=== PATIENT | female | born 1935 | race Caucasian/White ===

== ENCOUNTER 2020-11-30 20:39 | Observation (INO) | payer MEDICARE, BC ==
[~2020-11-30] VITALS: Ht 167.6 cm; Wt 55.6 kg
[2020-11-30 22:15] VITALS: BP 102/39; PULSE 73; TEMP 97.7
[2020-11-30] MEDS ORDERED: BINOSTO PO (22:17)
[2020-11-30] MEDS ORDERED: TIROSINT100 MC1 PO (22:18)
[2020-11-30] MEDS ORDERED: ATIVAN 0.50.5 MG/TAB PO (22:19)
[2020-11-30] MEDS ORDERED: COZAAR100 MG PO (22:19)
[2020-11-30] MEDS ORDERED: ZOCOR 40MG40 MG PO (22:20)
[2020-11-30] MEDS ORDERED: LOPRESSOR 550 MG/TAB PO (22:21)
[2020-11-30] MEDS ORDERED: CALCIUM WITH D31 CTB PO (22:22)
[2020-11-30] MEDS ORDERED: VITAMIND3 5000 PO (22:24)
[2020-11-30] MEDS ORDERED: KLOR-CON M2020 MEQ PO (22:25)
[2020-11-30] MEDS ORDERED: ALIGN (22:25)
[2020-11-30] MEDS ORDERED: COLESTID 1GM1 G PO (22:26)
[2020-11-30] MEDS ORDERED: PROZAC 20MG20 MG PO (22:26)
[2020-11-30] MEDS ORDERED: DIGITEK0.125 MG PO (22:28)
[2020-11-30] MEDS ORDERED: PLAVIX 75MG TAB75 MG PO (22:28)
--- NOTE | 2020-11-30 23:00 | NUR ---
PT ARRIVES TO ROOM WITH EMS. REPORT HAD PREVIOUSLY BEEN TAKEN FROM TRANSFERRING FACILITY. PT IS A&O X3, PLEASANT ET COOPERATIVE. PT AMBULATES TO BED FROM EMS STRETCHER. GAIT IS STEADY. PT DENIES ANY PAIN OR NAUSEA @ THIS TIME. BOWEL SOUNDS ARE ACTIVE. PT ORIENTED TO UNIT ROUTINE ET CALL LIGHT. MEDICATIONS VERIFIED WITH PT. VERBALIZES UNDERSTANDING. PT DENIES OTHER NEEDS. DR FARR CALLED ET NOTIFIED OF PT ARRIVAL. ORDERS RECEIVED.
[2020-11-30] MEDS ORDERED: LANOXIN 0.120.125 MG PO (23:06)
[2020-12-01 03:18] VITALS: BP 107/57; PULSE 78; TEMP 98.5
[2020-12-01 07:00] LABS: HEMOGLOBIN 10.2 g/dl (12.5-16.0); MEAN CELL VOLUME 95 fl (80.0-100.0); MEAN CORPUSCULAR HEMOGLOBIN 31 pg (27.0-31.0); MEAN CORPUSCULAR HGB CONC 32 g/dl (33.0-37.0); MEAN PLATELET VOLUME 9.2 fl (7.4-10.4); PLATELET COUNT 186 K/mm3 (130-400); RED BLOOD COUNT 3.34 M/mm3 (4.10-5.30); REDCELL DISTRIBUTION WIDTH-CV 13.1 % (11.5-14.5)
[2020-12-01 07:02] LABS: HEMATOCRIT 31.7 % (37.0-47.0)
[2020-12-01 07:09] LABS: ALBUMIN 2.9 gm/dL (3.5-5.0); BILIRUBIN,TOTAL 0.3 mg/dL (0.0-1.0); CALCIUM 7.6 mg/dL (8.4-10.2); CREATININE, serum 0.94 (0.52-1.25); POTASSIUM 3.7 mmol/L (3.4-5.0); TOTAL PROTEIN 5.6 gm/dL (6.4-8.2)
[2020-12-01 07:29] VITALS: BP 108/54; PULSE 82; TEMP 98.3
[2020-12-01 07:47] LABS: BAND 15 % (0-10); EOSINOPHIL 5 % (0-4); LYMPHOCYTE 38 % (20.0-51.0); METAMYELOCYTE 1 % (0-0); NEUTROPHILS 36 % (42.0-75.2); PLATELET ESTIMATE NORMAL (NORMAL)
--- NOTE | 2020-12-01 09:45 | NUR ---
Patient alert and oriented, answers questions appropriately. See assessment. Abdomen soft, non tender, non distended. Bowel sounds active x4 quads. +Flatus. +Bowel movement. CLD, asking to increase diet. No c/o at this time.
[2020-12-01 11:28] VITALS: BP 113/45; PULSE 77; TEMP 98.7
--- NOTE | 2020-12-01 11:30 | NUR ---
SW met with patient in her room and her son, Williams Mcgee, was present as well. Patient is a and resides alone in a home without stairs in [place], [place]. Patient has 2 sons and 1 daughter but the closest child lives in [place]. Her daughter will be staying with her for several days to make sure she returns to full independence. Patient states she has a large support system in the immediate area made up of friends and neighbors. Patient is mostly indep but has a walker and a cane as needed. PCP is Dr. José in [place]. Patient obtains her meds from [facility] in [place]. *Patient will likely d/c home with no needs when medically cleared
[2020-12-01 11:50] VITALS: BP 114/74; PULSE 74; TEMP 98.1
--- NOTE | 2020-12-01 12:55 | NUR ---
First visit from the train examiner. No needs right now.
--- NOTE | 2020-12-01 16:21 | NUR ---
Discharge instructions reviewed with patient and son, verbalized understanding. Discharged via wheelchair to auto/home with son at 1615.
== END 2020-12-01 16:20 | disposition home or self-care (01) ==
LOC: MEDICAL 20:39 → SURG 22:00 → MEDICAL 22:00 → SURG 22:00
PROVIDERS: ADMIT Surgery
DX: K56.600 Partial intestinal obstruction, unspecified as to cause (principal); I48.91 Unspecified atrial fibrillation; K50.90 Crohn's disease, unspecified, without complications; K52.9 Noninfective gastroenteritis and colitis, unspecified; K59.81 Ogilvie syndrome; E78.00 Pure hypercholesterolemia, unspecified; I10 Essential (primary) hypertension; E03.9 Hypothyroidism, unspecified; N39.0 Urinary tract infection, site not specified; F41.9 Anxiety disorder, unspecified; Z87.820 Personal history of traumatic brain injury; Z79.01 Long term (current) use of anticoagulants; Z95.0 Presence of cardiac pacemaker; Z90.49 Acquired absence of other specified parts of digestive tract; Z79.890 Hormone replacement therapy; Z79.899 Other long term (current) drug therapy; Z87.891 Personal history of nicotine dependence; Z98.0 Intestinal bypass and anastomosis status
CPT/HCPCS: G0378; G0379; J7042

== ENCOUNTER 2021-04-21 13:33 | Inpatient (IN) | payer MEDICARE, BC ==
[~2021-04-21] VITALS: Ht 167.6 cm; Wt 54.6 kg
[~2021-04-21 13:33] MED LIST: ALIGN; ATIVAN 0.50.5 MG/TAB PO; BINOSTO PO; CALCIUM WITH D31 CTB PO; COLESTID 1GM1 G PO; COZAAR100 MG PO; DIGITEK0.125 MG PO; KLOR-CON M2020 MEQ PO; LANOXIN 0.120.125 MG PO; LOPRESSOR 550 MG/TAB PO; PLAVIX 75MG TAB75 MG PO; PROZAC 20MG20 MG PO; TIROSINT100 MC1 PO; VITAMIND3 5000 PO; ZOCOR 40MG40 MG PO
[2021-05-10] MEDS ORDERED: ASPIRIN E.C. 8181 MG PO (08:46)
[2021-05-10] MEDS ORDERED: CENTRUM SILVER1 CTB PO (08:47)
[2021-05-10] MEDS ORDERED: PEPCID 20MG TAB20 MG PO (08:47)
[2021-05-10] MEDS ORDERED: LUTEIN20 M1 PO (08:48)
[2021-05-10] MEDS ORDERED: ZOFRAN ODT4 MG PO (08:49)
[2021-05-10] MEDS ORDERED: TYLENOL 500MG500 MG PO (08:51)
[2021-05-10 09:00] LABS: BASO # 0.1 K/mm3 (0.0-0.2); BASO % 0.9 % (0.0-2.0); EOS # 0.2 K/mm3 (0.0-0.7); EOS % 3.3 % (0.0-4.0); GRAN # 3.5 K/mm3 (1.4-6.5); GRAN % 61.8 % (42.2-75.2); HEMATOCRIT 33.2 % (37.0-47.0); HEMOGLOBIN 10.8 g/dl (12.5-16.0); LYMPH # 1.4 K/mm3 (1.2-3.4); LYMPH % 24.7 % (20.0-51.0); MEAN CELL VOLUME 94 fl (80.0-100.0); MEAN CORPUSCULAR HEMOGLOBIN 30 pg (27-31); MEAN CORPUSCULAR HGB CONC 33 g/dl (33.0-37.0); MEAN PLATELET VOLUME 8.9 fl (7.4-10.4); MONO # 0.5 K/mm3 (0.1-0.6); MONO % 8.9 % (1.7-9.3); PLATELET COUNT 181 K/mm3 (130-400); RED BLOOD COUNT 3.55 M/mm3 (4.10-5.30); REDCELL DISTRIBUTION WIDTH-CV 13.2 % (11.5-14.5)
[2021-05-10 09:08] VITALS: BP 129/56; PULSE 70; TEMP 98.2
[2021-05-10 09:20] LABS: CALCIUM 8.6 mg/dL (8.4-10.2); CREATININE, serum 0.93 mg/dL (0.57-1.11); POTASSIUM 4.1 mmol/L (3.5-4.5)
--- NOTE | 2021-05-10 19:27 | NUR ---
C/O nausea after taking in clear liquids. Zofran given per dr order.
[2021-05-10 19:30] VITALS: BP 96/50; PULSE 91; TEMP 98
[2021-05-10 20:15] VITALS: BP 125/69; PULSE 88
--- NOTE | 2021-05-10 20:20 | NUR ---
This nurse to room to remove LAMONT as post op vitals were complete. Noted to have several soft BPs at 1800 and 1900. Cuff on patient is an adult and very large on patient. Switched cuff to Adult small with blood pressure 120s/60s. Patient denies lightheadedness/dizziness. Zofran given earlier in shift helped nausea. Denies questions/concerns. Call light in reach. Will monitor.
--- NOTE | 2021-05-10 22:28 | NUR ---
RECEIVED REPORT FROM DAY SHIFT. PATIENT HERE FOR ROBOTIC DIAGNOSTIC LAP. PATIENT PRESENTS WITH 5 LAP SITES. FOUR GLUED, ONE BIKINI TRANSVERSE SITE COVERED WITH GAUZE. ALL APPROXIMATED AND DRY. PATIENT IS ALERT AND ORIENTED. PATIENT DENIES ANY PAIN AT THIS TIME. PATIENT HAD MILD NAUSEA WITH CLEAR FLUIDS. MEDICATIONS GIVEN. PATIENT APPEARS PALE AND REPORTS THAT HER NAUSEA IS SUBSIDING. PATIENT IS RESTING IN BED WITH CALL LIGHT NEAR.
[2021-05-10 23:25] VITALS: BP 92/44; PULSE 88; TEMP 97.6
--- NOTE | 2021-05-10 23:51 | NUR ---
PATIENT'S BLOOD PRESSURES HAVE BEEN SOFT, READING AT 81/43 AND 92/44. CALLED KISHORE FOR GUIDANCE. KISHORE ORDERED STAT H&H AND BOLUS NS OF 250CC. PATIENT HAS HAD OUTPUT OF 125CC TOTAL POST OP. WILL CONTINUE TO MONITOR.
[2021-05-11] VITALS (12 sets, daily range): BP systolic 83–118; BP diastolic 36–54; PULSE 71–94; TEMP 97.1–98.7
[2021-05-11 00:07] LABS: HEMATOCRIT 24.2 % (37.0-47.0)
--- NOTE | 2021-05-11 00:13 | NUR ---
PATIENT HAD H&H DONE. HGB DECREASED TO 8.0 AND HCT TO 24.2. CALLED KISHORE TO REPORT NEW LABS. KISHORE ORDERED NEW H&H AT 0600 WITH PT/INR. WILL CONTINUE TO MONITOR.
--- NOTE | 2021-05-11 02:59 | NUR ---
PATIENT CONTINUES TO PRESENT SOFT PRESSURES OF 79/36 AND 85/36 AND LOW OUTPUT OF 5ML OVER PREVIOUS THREE HOURS. CALLED KISHORE TO PROVIDE GUIDANCE. KISHORE ORDERED NS BOLUS OFF 500CC @175/HOUR. WILL CONTINUE TO MONITOR.
--- NOTE | 2021-05-11 05:42 | NUR ---
Patient continues to have soft blood pressures-currently 90s/40s. Output has not beed adequate-total of 80mls for this shift. Did discuss with Dr. Meraz and patient received a total of 750mls in slow bolus per dr order. Patient is asymptomatic currently but has not been up out of bed. Lap sites/low transverse-edges well approximated-no drainage noted. Could not tolerate clear liquids at dinner due to nausea. Received zofran x1. Denied need for pain meds-scheduled tylenol was adequate. Denies current questions/concerns. Call light in reach. Will monitor.
[2021-05-11 06:56] LABS: BASO % 0.2 % (0.0-2.0); GRAN # 9.6 K/mm3 (1.4-6.5); GRAN % 79.3 % (42.2-75.2); LYMPH # 1.7 K/mm3 (1.2-3.4); LYMPH % 13.8 % (20.0-51.0); MEAN CELL VOLUME 98 fl (80.0-100.0); MEAN CORPUSCULAR HGB CONC 31 g/dl (33.0-37.0); MEAN PLATELET VOLUME 9.5 fl (7.4-10.4); MONO # 0.8 K/mm3 (0.1-0.6); MONO % 6.4 % (1.7-9.3); PLATELET COUNT 197 K/mm3 (130-400); RED BLOOD COUNT 2.39 M/mm3 (4.10-5.30); REDCELL DISTRIBUTION WIDTH-CV 13.4 % (11.5-14.5)
[2021-05-11 07:04] LABS: HEMATOCRIT 23.3 % (37.0-47.0); HEMOGLOBIN 7.3 g/dl (12.5-16.0); MEAN CORPUSCULAR HEMOGLOBIN 31 pg (27-31)
[2021-05-11 07:05] LABS: CALCIUM 7.8 mg/dL (8.4-10.2); CREATININE, serum 1.87 mg/dL (0.57-1.11); MAGNESIUM 1.9 mg/dL (1.6-2.6); PHOSPHOROUS 6.3 mg/dL (2.3-4.7); POTASSIUM 4.4 mmol/L (3.5-4.5)
[2021-05-11 07:28] LABS: INR 1.4 (0.8-3.0); PROTHROMBIN TIME 15.6 SECONDS (9.7-12.8)
--- NOTE | 2021-05-11 13:47 | NUR ---
First visit from the striker off. No needs right now.
--- NOTE | 2021-05-11 14:31 | NUR ---
Social Work student and RAMONA Junior met with patient to discuss discharge planning. Patient usually resides in [place], [place], but is temporarily living in an apartment by her daughter, Idalmis, in [place], [place]. Idalmis is listed as the patient's emergency contact(ph#[phone]). [facility] Patient sees for primary care. Patient states that she usually receives medications from [facility] in [place], [place], but her daughter, Idalmis, stated that she will most likely be receiving medications after discharge from the hospital in [place], [place] from [facility]. Patient does not utilize any durable medical equiptment, does not use any oxygen at home, and is independent with her ADL's. Patient stated she does have a DPOA-HC. Patient's daughter, Idalmis, stated that she has a copy of it on her email and will send it via email to RAMONA Junior for the hospital to have a copy. The DPOA-HC presents that all three kids are listed as the agents that have to act in unanimous consent. The kids and their numbers are as followed: Nicho(ph#[phone]), Idalmis(ph#[phone]), and Richard(ph#[phone]). Discharge plan: Home pending PT/OT recs
[2021-05-11 16:08] LABS: HEMATOCRIT 28.1 % (37.0-47.0); HEMOGLOBIN 9.1 g/dl (12.5-16.0)
[2021-05-11 16:23] LABS: ALBUMIN 2.8 gm/dL (3.4-4.8); CALCIUM 7.8 mg/dL (8.4-10.2); CREATININE, serum 2.42 mg/dL (0.57-1.11); PHOSPHOROUS 6.2 mg/dL (2.3-4.7); POTASSIUM 4.9 mmol/L (3.5-4.5)
--- NOTE | 2021-05-11 17:26 | NUR ---
BP 93/41, Pulse 77. Bolus ordered and currently being administered. Daughter at the bedside. Call light in reach. Fall percautions in place.
--- NOTE | 2021-05-11 18:29 | NUR ---
Upon recheck of vitals, BP 101/47 with a pulse of 74. Patient states that she is "Feeling better," but still experiencing intermittent ABD pain. PRN zofran given once this shift. Patient denies any pain, discomfort, SOA, or further needs at this time. Call light in reach. Fall percautions in place. Bong A&O.
--- NOTE | 2021-05-11 21:55 | NUR ---
PATIENT ALERT AND ORIENTED. HERE FOR ROBOTIC ANASTAMOSIS RE-ATTACHMENT. PATIENT IS HAVING N/V. PATIENT OFFERED ZOFRAN AND DENIED THE NEED. PATIENT INSTRUCTED TO SIP ON LIQUIDS. PATIENT'S PRESSURES CONTINUE TO BE LOW. SOME EVENING MEDS HELD DUE TO LOW BP. PATIENT HAD EMESIS AFTER GIVING EVENING MEDS. PATIENT CONTINUES TO HAVE LOW OUTPUT WITH BISHOP. WILL CONTINUE TO MONITOR. PATIENT IN BED WITH CALL LIGHT NEAR.
[2021-05-12 03:48] VITALS: BP 112/51; PULSE 75; TEMP 98.2
--- NOTE | 2021-05-12 05:32 | NUR ---
Patient has been nauseated with movement this shift. Has been dry heaving but no emesis. Refusing anti nausea medications stating its only when she moves and with rest it subsides. Instructed to call if she would like connor. Verbalizes understanding. Call light in reach. Will monitor.
--- NOTE | 2021-05-12 06:08 | NUR ---
PATIENT FEELING NAUSEATED, REQUESTED ZOFRAN AFTER DENYING TWICE THROUGHOUT SHIFT. WILL CONTINUE TO MONITOR.
[2021-05-12 06:55] LABS: BASO % 0.2 % (0.0-2.0); EOS % 0.2 % (0.0-4.0); GRAN # 8.9 K/mm3 (1.4-6.5); GRAN % 80.8 % (42.2-75.2); LYMPH # 1.5 K/mm3 (1.2-3.4); LYMPH % 13.5 % (20.0-51.0); MEAN CELL VOLUME 94 fl (80.0-100.0); MEAN CORPUSCULAR HGB CONC 32 g/dl (33.0-37.0); MEAN PLATELET VOLUME 9.3 fl (7.4-10.4); MONO # 0.6 K/mm3 (0.1-0.6); PLATELET COUNT 184 K/mm3 (130-400); RED BLOOD COUNT 2.72 M/mm3 (4.10-5.30); REDCELL DISTRIBUTION WIDTH-CV 14.6 % (11.5-14.5)
[2021-05-12 07:14] LABS: ALBUMIN 2.6 gm/dL (3.4-4.8); ALKALINE PHOSPHATASE 71 U/L (40-150); ANION GAP 9 mmol/L (7-16); AST,SGOT 21 U/L (5-34); BILIRUBIN,TOTAL 0.5 mg/dL (0.2-1.2); BLOOD UREA NITROGEN 27 mg/dL (10-20); CALCIUM 7.6 mg/dL (8.4-10.2); CARBON DIOXIDE 22 mmol/L (23-31); CHLORIDE 104 mmol/L (98-107); CREATININE, serum 2.62 mg/dL (0.57-1.11); GLUCOSE 117 mg/dL (70-99); POTASSIUM 4.4 mmol/L (3.5-4.5); SODIUM 135 mmol/L (136-145)
[2021-05-12 07:18] LABS: ALANINE AMINOTRANSFERASE < 6 U/L (0-55)
[2021-05-12 07:27] LABS: HEMATOCRIT 25.6 % (37.0-47.0); HEMOGLOBIN 8.3 g/dl (12.5-16.0); MEAN CORPUSCULAR HEMOGLOBIN 31 pg (27-31)
[2021-05-12 07:38] VITALS: BP 99/37; PULSE 85; TEMP 98.2
--- NOTE | 2021-05-12 08:14 | NUR ---
called and we reviewed patient Bp as well as labs. Hospitalist consult obtained & spoke to kris Briones about patient
--- NOTE | 2021-05-12 08:36 | NUR ---
Patient assisted up to chiar at bedside. Redness noted to coccyx; skin is intact. Daughter at bedside
[2021-05-12 11:42] VITALS: BP 139/71; PULSE 95; TEMP 98.1
--- NOTE | 2021-05-12 11:48 | NUR ---
Patient resting in bed. Repositioned to her right side at her request. Daughter at bedside. She denies further needs at this time
--- NOTE | 2021-05-12 14:08 | NUR ---
Patient requesting anti-nausea medication. Daughter at bedside. Patient had approx 4ml of emesis. Daughter is concerned about hematemesis. Patient had red jello as a snack
[2021-05-12 16:00] VITALS: BP 140/54; PULSE 100; TEMP 98.5
--- NOTE | 2021-05-12 16:44 | NUR ---
oil field worker met with the patient's daughter who would like a SNF referral sent to [facility] in [place]. Patient's daughter is a RN there. Phone number :[phone] provided. [facility] coordinator is Keyla Mcknight at ext. [phone]. Message left for Keyla. [facility] contacted and fax number for nursing [phone] provided. Patient's daughter expresses concern over if the patient can make a [address] ride.
--- NOTE | 2021-05-12 17:16 | NUR ---
Patient vomited again. Called Dr. Felix to update him on patient status. Per Dr. Felix he will increase IV fluids and patient is to be NPO for now.
[2021-05-12 19:31] VITALS: BP 129/61; PULSE 106; TEMP 99.1
--- NOTE | 2021-05-12 21:32 | NUR ---
REPORT RECEIVED FROM DAY SHIFT. ASSUMED CARE. PATIENT A&OX3. PATIENT DENIES ANY PAIN AT THIS TIME. ASSESSMENT COMPLETE. BISHOP TO ALYX. SMALL REDDENED AREA ON RIGHT CHEEK OF BUTTOCKS. PM MEDS GIVEN. COZAAR HELD DUE TO MULTIPLE HTN MEDS AND PATIENT HAS BEEN HAVING SOFT PRESSURES. WILL CONTINUE TO MONITOR. PATIENT RESTING IN BED WITH CALL LIGHT NEAR.
[2021-05-12 23:22] VITALS: BP 150/73; PULSE 119; TEMP 99.1
--- NOTE | 2021-05-12 23:57 | NUR ---
ATTEMPTED TO GIVE PATIENT SCHEDULED TYLENOL. PATIENT BEGAN TO VOMIT APPROXIMATELY 240CC OF EMESIS. PATIENT REQUESTED ZOFRAN. WILL CONTINUE TO MONITOR.
[2021-05-13 03:15] VITALS: BP 125/58; PULSE 116; TEMP 98.6
--- NOTE | 2021-05-13 06:33 | NUR ---
PATIENT HAS HAD TWO EPISODES OF VOMITING THROUGHOUT SHIFT. GAVE PATIENT ZOFRAN X2. MORNING MEDS GIVEN. PATIENT PREFERS TO HAVE HER SYNTHROID WITH ATIVAN IN THE MORNINGS. PATIENT DENIES ANY PAIN AT THIS TIME.
[2021-05-13 06:49] LABS: MEAN CELL VOLUME 95 fl (80.0-100.0); MEAN CORPUSCULAR HGB CONC 32 g/dl (33.0-37.0); MEAN PLATELET VOLUME 9.4 fl (7.4-10.4); PLATELET COUNT 233 K/mm3 (130-400); REDCELL DISTRIBUTION WIDTH-CV 14.2 % (11.5-14.5)
[2021-05-13 07:12] LABS: ALBUMIN 2.4 gm/dL (3.4-4.8); ALKALINE PHOSPHATASE 81 U/L (40-150); ANION GAP 9 mmol/L (7-16); AST,SGOT 19 U/L (5-34); BILIRUBIN,TOTAL 0.5 mg/dL (0.2-1.2); BLOOD UREA NITROGEN 25 mg/dL (10-20); CARBON DIOXIDE 21 mmol/L (23-31); CHLORIDE 107 mmol/L (98-107); CREATININE, serum 1.56 mg/dL (0.57-1.11); GLUCOSE 102 mg/dL (70-99); POTASSIUM 4.2 mmol/L (3.5-4.5); SODIUM 137 mmol/L (136-145); TOTAL PROTEIN 5.2 gm/dL (6.2-8.1)
[2021-05-13 07:14] LABS: ALANINE AMINOTRANSFERASE < 6 U/L (0-55)
[2021-05-13 07:23] LABS: HEMATOCRIT 27.4 % (37.0-47.0); HEMOGLOBIN 8.8 g/dl (12.5-16.0); MEAN CORPUSCULAR HEMOGLOBIN 30 pg (27-31)
[2021-05-13 08:00] VITALS: BP 143/58; PULSE 120; TEMP 97.9
[2021-05-13 08:51] LABS: BAND 7 % (0-10); LYMPHOCYTE 12 % (20.0-51.0); NEUTROPHILS 81 % (42.0-75.2)
--- NOTE | 2021-05-13 08:51 | NUR ---
Patient assisted out of bed. Up to the bathroom, she had a loose liquid Bm. Patient also vom[facility] dark green [facility] Attempted to give patient her Lopressor and Prozac, but did appear to vomit it up. Held all other medications due to being NPO. Patient abdomen is more distended & firm today. She was up to sink to brush her teeth. Sitting up in chair now. Will closely monitor.
[2021-05-13 08:53] LABS: HYPOCHROMIA 1+; PLATELET ESTIMATE NORMAL (NORMAL); SCHISTOCYTES 1+
--- NOTE | 2021-05-13 10:16 | NUR ---
Patient back to bed. Resting now. Will monitor.
[2021-05-13 11:25] VITALS: BP 119/54; PULSE 100; TEMP 97.6
--- NOTE | 2021-05-13 12:40 | NUR ---
round. Plan of care reviewed. Discussed with hospitalist & Trixie Virgen patient elevated heart rate, also made them aware patient was unable to keep metoprolol down this am. Iv Lopressor ordered as well as tele to closely monitor patient. Zofran Prn given to attempt to keep patient nausea at bay, patient not currently wanting Ng tube, she has had one in the past and would like to let her bowels continue to rest. Will try to encourage activity today. Patient currently resting. Will monitor.
--- NOTE | 2021-05-13 14:45 | NUR ---
Patient has another episode for nausea. continues to deny wanting an NG tube. Will monitor.
[2021-05-13 15:40] VITALS: BP 154/67; PULSE 92; TEMP 98.5
--- NOTE | 2021-05-13 16:12 | NUR ---
Patient up to the bathroom, she had a loose BM. Reports maybe passing flatus while she was up. She did again have an episode of emesis. She continues to want to avoid Ng tube. She remains NPO. Allyven foam applied to her coccyx, lying on her right side. We offered tried to place air matress on her bed, she has no interest. Fresh gown,sock, and lotion to skin.
--- NOTE | 2021-05-13 18:17 | NUR ---
Patient sleeping soundly, her daughter at bedside.
[2021-05-13 19:24] VITALS: BP 137/51; BP 137/510; PULSE 99; TEMP 98.3
--- NOTE | 2021-05-13 20:21 | NUR ---
PT HAS BEEN UP TO BATHROOM X1, HAS SPONTANEOUS LOOSE STOOL, DENIES PASSING GAS. BISHOP TO BSD WITH YELLOW URINE. TAKES LANOXIN PO, REFUSES COLACE AND PEPCID FOR FEAR OF VOMITING. IV LOPRESSOR GIVEN WELL. PT ABD DISTENDED, HYPOACTIVE BS NOTED. IVF TO LEFT AC, INFUSING WITHOUT REDNESS OR SWELLING. HAS ROBOTIC SITES X4 WITH SMALL TRANSVERSE INCISION, ALL GLUED AND DRY. IS ALERT AND ORIENTED X4. DENIES PAIN AT THIS TIME.
[2021-05-13 23:48] VITALS: BP 121/90; PULSE 100; TEMP 98.2
[2021-05-14 03:24] VITALS: BP 144/63; PULSE 98; TEMP 98.6
--- NOTE | 2021-05-14 04:02 | NUR ---
PT HAS EMESIS, ZOFRAN GIVEN AT THIS TIME.
--- NOTE | 2021-05-14 04:03 | NUR ---
PT HAS EMESIS, MEDICATED WITH ZOFRAN 4MG IVP AT THIS TIME.
[2021-05-14 07:17] LABS: MEAN CELL VOLUME 94 fl (80.0-100.0); MEAN CORPUSCULAR HGB CONC 32 g/dl (33.0-37.0); MEAN PLATELET VOLUME 9.2 fl (7.4-10.4); PLATELET COUNT 292 K/mm3 (130-400); RED BLOOD COUNT 2.97 M/mm3 (4.10-5.30); REDCELL DISTRIBUTION WIDTH-CV 14.3 % (11.5-14.5)
[2021-05-14 07:20] LABS: MEAN CORPUSCULAR HEMOGLOBIN 30 pg (27-31)
[2021-05-14 07:39] LABS: CALCIUM 8.4 mg/dL (8.4-10.2); CREATININE, serum 1.46 mg/dL (0.57-1.11); POTASSIUM 4.1 mmol/L (3.5-4.5)
[2021-05-14 07:45] VITALS: BP 135/73; PULSE 111; TEMP 98
[2021-05-14 08:50] LABS: BAND 1 % (0-10); EOSINOPHIL 2 % (0-4); LYMPHOCYTE 15 % (20.0-51.0); NEUTROPHILS 78 % (42.0-75.2)
[2021-05-14 08:52] LABS: HYPOCHROMIA 1+; PLATELET ESTIMATE NORMAL (NORMAL); SCHISTOCYTES 2+
--- NOTE | 2021-05-14 09:24 | NUR ---
PT ASSESSED. NO COMPLAINTS OF PAIN OR DYSPNEA. COMPLAINS OF NAUSEA/VOMITING AND IS MEDICATED PER MAR. NO OTHER CONCERNS AT THIS TIME. PT SENT DOWN FOR CT SCAN.
[2021-05-14 11:50] VITALS: BP 132/65; PULSE 107; TEMP 97.7
[2021-05-14 15:54] VITALS: BP 138/90; PULSE 109; TEMP 97.6
[2021-05-14 19:26] VITALS: BP 146/59; PULSE 98; TEMP 98.2
--- NOTE | 2021-05-14 21:00 | NUR ---
PT AWAKE, ALERT AND ORIENTED X4. DENIES NAUSEA AT THIS TIME, HAS HAD ONE LIQUID BM SO FAR THIS SHIFT. HAS IVF TO LEFT AC, INFUSING WITHOUT PROBLEM. HAS BISHOP TO BSD WITH YELLOW URINE. TAKES HS MEDS, EXCLUDING COLACE AT THIS TIME. PT REPORTS TAKING SCHEDULED ES TYLENOL X1 TODAY WITHOUT EMESIS. ABD DISTENDED WITH HYPOACTIVE BS. ROBOTIC SITES GLUED AND DRY.
[2021-05-14 23:30] VITALS: BP 156/62; PULSE 101; TEMP 97.8
--- NOTE | 2021-05-14 23:30 | NUR ---
PT TAKES SCHEDULED ES TYLENOL WITHOUT N/V. TAKING ICE CHIPS SPARINGLY.
[2021-05-15 03:13] VITALS: BP 133/62; PULSE 99; TEMP 98.2
--- NOTE | 2021-05-15 04:00 | NUR ---
PT UP TO BATHROOM, NO EMESIS, HAS SPONTANEOUS LIQUID STOOL, NO FLATUS.
--- NOTE | 2021-05-15 06:08 | NUR ---
PT HASN'T HAD ANY EMESIS THIS SHIFT. MEDICATED WITH SCHEDULED ES TYLENOL, SYNTHROID AND ATIVAN PO AT THIS TIME.
[2021-05-15 06:51] LABS: MEAN CELL VOLUME 96 fl (80.0-100.0); MEAN CORPUSCULAR HGB CONC 32 g/dl (33.0-37.0); MEAN PLATELET VOLUME 9.1 fl (7.4-10.4); PLATELET COUNT 314 K/mm3 (130-400); RED BLOOD COUNT 2.97 M/mm3 (4.10-5.30); REDCELL DISTRIBUTION WIDTH-CV 14.4 % (11.5-14.5)
[2021-05-15 07:03] LABS: CALCIUM 8.4 mg/dL (8.4-10.2); CREATININE, serum 1.31 mg/dL (0.57-1.11)
[2021-05-15 07:07] LABS: HEMATOCRIT 28.5 % (37.0-47.0); HEMOGLOBIN 9.1 g/dl (12.5-16.0); MEAN CORPUSCULAR HEMOGLOBIN 31 pg (27-31)
[2021-05-15 07:27] VITALS: BP 143/61; PULSE 87; TEMP 98.2
--- NOTE | 2021-05-15 10:31 | NUR ---
Pt. up at bedside in chair. Daughter at bedside. Call light within reach. Pt. denies pain. Denies any needs at this time
[2021-05-15 11:22] LABS: MAGNESIUM 2.3 mg/dL (1.6-2.6)
[2021-05-15 11:45] LABS: PATHOLOGY DIFF REVIEW OK
[2021-05-15 12:00] VITALS: BP 142/49; PULSE 92; TEMP 97.6
--- NOTE | 2021-05-15 14:57 | NUR ---
Media Production Manager contacted Keyla at [facility] and faxed referral. Keyla advised that they can likely accept once patient is off TPN. RAMONA collaborated with IGGY Brooks who advised patient is being started on TPN today.
--- NOTE | 2021-05-15 15:00 | NUR ---
Patient was up to the bathroom and had another loose liquid brown stool, assisted with pericares. Patient one assist to ambulate in hallways. Dr.Wolfe saini, plan of care reviewed. Brittany with AIV at bedside inserting picc line. Clear liquids provided. Her supportive daughter has been at bedside.
[2021-05-15 16:00] VITALS: BP 169/67; PULSE 99; TEMP 98.6
--- NOTE | 2021-05-15 16:28 | NUR ---
Patient attempted orange jello for lunch today. Denied having abd pain or nausea after eating. PICC line was inserted this afternoon. Patient had emesis x 1 around 1610. PRN Zofran given.
--- NOTE | 2021-05-15 19:29 | NUR ---
Patient resting in bed. Daughter at bedside. Reports feeling better after zofran. Bedside report to Sherron
[2021-05-15 20:15] VITALS: BP 139/61; PULSE 112; TEMP 98
[2021-05-16] VITALS (7 sets, daily range): BP systolic 126–165; BP diastolic 40–79; PULSE 83–118; TEMP 97.6–98.9
--- NOTE | 2021-05-16 01:08 | NUR ---
Report received from Christel Harrison RN. Patient is resting quietly in bed during shift report, daughter at the bedside. 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 Patient has 3 lap sites that are CD&I. Velazquez in place, urine output is pale yellow and clear. Full body assessment completed and vital signs are WNL. Patient complains of abdominal bloating but no pain. She is tolerating her clear liquid diet well. Patient has no other complaints at this time. Call light within reach.
[2021-05-16 06:38] LABS: MEAN CELL VOLUME 97 fl (80.0-100.0); MEAN CORPUSCULAR HGB CONC 31 g/dl (33.0-37.0); MEAN PLATELET VOLUME 9.3 fl (7.4-10.4); PLATELET COUNT 294 K/mm3 (130-400); RED BLOOD COUNT 2.58 M/mm3 (4.10-5.30); REDCELL DISTRIBUTION WIDTH-CV 14.5 % (11.5-14.5)
[2021-05-16 06:59] LABS: HEMATOCRIT 24.9 % (37.0-47.0); HEMOGLOBIN 7.7 g/dl (12.5-16.0); MEAN CORPUSCULAR HEMOGLOBIN 30 pg (27-31)
[2021-05-16 07:30] LABS: BAND 22 % (0-10); BASOPHIL 1 % (0-2); EOSINOPHIL 15 % (0-4); LYMPHOCYTE 9 % (20.0-51.0); NEUTROPHILS 48 % (42.0-75.2); NUCLEATED RED BLOOD CELL 4 (0-6)
--- NOTE | 2021-05-16 07:30 | NUR ---
Shift assessment complete. Irregular Heart rate with Afib noted. Patient denies pain or nausea at this time. Breath sounds clear in all myers. Bowel sounds active in all quadrants. Velazquez intact with 195mls adithya, clear urine noted in bag. PICC line is intact. Patient remains on telemetry.
[2021-05-16 07:34] LABS: OVALOCYTES 1+
[2021-05-16 07:35] LABS: HYPOCHROMIA 2+
[2021-05-16 07:39] LABS: CALCIUM 8.6 mg/dL (8.4-10.2); CREATININE, serum 1.08 mg/dL (0.57-1.11); MAGNESIUM 2.1 mg/dL (1.6-2.6); PHOSPHOROUS 1.8 mg/dL (2.3-4.7); POTASSIUM 3.8 mmol/L (3.5-4.5)
--- NOTE | 2021-05-16 09:50 | NUR ---
PT DENIES PAIN OR NAUSEA, HOB ELEVATED. TPN ET IVF INFUSING. BISHOP CATHETER DRAINING DEPENDENTLY. PT ET ACCREDITATION MANAGER NURSE REPORT PT PASSING GAS DURING NIGHT. ABDOMEN IS FIRM, BS HYPOACTIVE, INCISION EDGES WELL APPROXIMATED. DAUGHTER IS @ BEDSIDE. PT ET FAMILY DENY NEEDS. CALL LIGHT WITHIN REACH. BED ALARM ON.
--- NOTE | 2021-05-16 10:40 | NUR ---
STUDENT NURSE JOAN REPORTS THAT PT HAD 100 ML GREEN EMESIS SHORTLY AFTER SWALLOWING PILLS. PILLS DID NOT APPEAR TO BE IN EMESIS. PT STATES THAT SHE FEELS NAUSEOUS BUT DENIES PAIN. PT IS GIVEN BED BATH, CATHETER CARE, ET GOWN CHANGE BY STUDENT NURSES.
--- NOTE | 2021-05-16 11:27 | NUR ---
Manager Commission contacted patient's daughter, Idalmis to provide update. Idalmis advised she is still staying here in [place] but may return home to [place] for a couple days. Idalmis advised she plans to transport patient to [place] ([facility] at time of discharge. Idalmis advised patient wishes to go by private vehicle. Idalmis also advised that if patient needs to stay on TPN she is open to other discharge placements if needed. Discharge Plan: Swing Bed
[2021-05-17 00:03] VITALS: BP 148/61; PULSE 90; TEMP 99
--- NOTE | 2021-05-17 04:10 | NUR ---
Report received from SHANNON Etienne. Full body assessment has been completed and vital signs are WNL. Patient is A&Ox3 and pleasant. Patient resting quietly in bed during shift report. Patient no longer has a kwon catheter in place and has been voiding without difficulty. Per report patient also had a small, soft BM 05/16/21. Patient has been tolerating oral fluids well. No complaints of pain at this time. Call light within reach.
[2021-05-17 04:32] VITALS: BP 140/60; PULSE 86; TEMP 98.3
[2021-05-17 06:25] LABS: MEAN CELL VOLUME 95 fl (80.0-100.0); MEAN CORPUSCULAR HGB CONC 32 g/dl (33.0-37.0); MEAN PLATELET VOLUME 9.3 fl (7.4-10.4); PLATELET COUNT 319 K/mm3 (130-400); RED BLOOD COUNT 2.78 M/mm3 (4.10-5.30)
[2021-05-17 06:26] LABS: HEMATOCRIT 26.3 % (37.0-47.0); HEMOGLOBIN 8.4 g/dl (12.5-16.0); MEAN CORPUSCULAR HEMOGLOBIN 30 pg (27-31)
[2021-05-17 06:46] LABS: ALBUMIN 2.1 gm/dL (3.4-4.8); BILIRUBIN,TOTAL 0.7 mg/dL (0.2-1.2); CALCIUM 8.7 mg/dL (8.4-10.2); CREATININE, serum 0.8 mg/dL (0.57-1.11); PHOSPHOROUS 2.5 mg/dL (2.3-4.7); POTASSIUM 4.1 mmol/L (3.5-4.5); TOTAL PROTEIN 5.2 gm/dL (6.2-8.1)
[2021-05-17 07:00] VITALS: BP 154/62; PULSE 95; TEMP 97.8
[2021-05-17 07:16] LABS: BAND 46 % (0-10); BURR CELLS 1+; EOSINOPHIL 5 % (0-4); LYMPHOCYTE 6 % (20.0-51.0); NEUTROPHILS 41 % (42.0-75.2); OVALOCYTES 1+; PLATELET ESTIMATE NORMAL (NORMAL); SCHISTOCYTES 1+
--- NOTE | 2021-05-17 07:30 | NUR ---
Shift assessment complete. Irregular heart rate with Afib noted. Pt remains on telemetry. Bowel sounds hypoactive in all quadrants.
--- NOTE | 2021-05-17 08:30 | NUR ---
During PT, patient was helped to restroom where she had a liquid, slightly green bowel movement. While on the toilet, pt vomited 225 mls of dark green emesis. Primary RN notified.
[2021-05-17 10:50] VITALS: BP 154/63; PULSE 95; TEMP 98.1
--- NOTE | 2021-05-17 14:38 | NUR ---
CT HERE TO TAKE PT OFF FLOOR.
--- NOTE | 2021-05-17 15:12 | NUR ---
Social Work student faxed clinical updates to [facility].
[2021-05-17 15:40] VITALS: BP 159/64; PULSE 86; TEMP 98
[2021-05-17 19:29] VITALS: BP 157/68; PULSE 93; TEMP 98.5
--- NOTE | 2021-05-17 21:00 | NUR ---
PT IN BED. HAS BEEN VOIDING WITHOUT PROBLEM. HAD LOOSE INC STOOL EARLIER. HAS RT PICC WITH TPN INFUSING. MODERATE BRUISING TO LEFT FLANK NOTED WELL RT FOREARM. ABD WITH ROBOTIC SITES X4, GLUED, AND LOW TRANSVERSE INCISION GLUED, HAS PUBIS BRUISING WELL. ABD DISTENDED WITH HYPOACTIVE BS. PT REPORTS PASSING GAS WITH INC STOOL PREVIOUSLY. DENIES NAUSEA AT THIS TIME AND HAS BEEN TAKING ORAL MEDS WITHOUT PROBLEM. DENIES PAIN.
--- NOTE | 2021-05-17 23:00 | NUR ---
SCHEDULED ES TYLENOL GIVEN, NO EMESIS.
[2021-05-18 00:21] VITALS: BP 136/60; PULSE 84; TEMP 99.5
[2021-05-18 03:59] VITALS: BP 157/80; PULSE 88; TEMP 99.1
--- NOTE | 2021-05-18 04:00 | NUR ---
UP TO BATHROOM, HAS LOOSE BROWN STOOL, VOIDS WITHOUT PROBLEM. BACK TO BED.
--- NOTE | 2021-05-18 05:19 | NUR ---
LABS OBTAINED FROM RT PICC AFTER TPN ON HOLD FOR 10 MINUTES. PT DENIES NEEDS AT THIS TIME.
[2021-05-18 06:15] LABS: HEMATOCRIT 25.6 % (37.0-47.0); HEMOGLOBIN 8.1 g/dl (12.5-16.0); MEAN CELL VOLUME 95 fl (80.0-100.0); MEAN CORPUSCULAR HEMOGLOBIN 30 pg (27-31); MEAN CORPUSCULAR HGB CONC 32 g/dl (33.0-37.0); MEAN PLATELET VOLUME 9.3 fl (7.4-10.4); PLATELET COUNT 317 K/mm3 (130-400); RED BLOOD COUNT 2.69 M/mm3 (4.10-5.30); REDCELL DISTRIBUTION WIDTH-CV 14.3 % (11.5-14.5)
[2021-05-18 06:29] LABS: CALCIUM 8.8 mg/dL (8.4-10.2); CREATININE, serum 0.67 mg/dL (0.57-1.11); MAGNESIUM 1.9 mg/dL (1.6-2.6); PHOSPHOROUS 2.2 mg/dL (2.3-4.7); POTASSIUM 3.9 mmol/L (3.5-4.5)
[2021-05-18 06:51] LABS: BAND 3 % (0-10); EOSINOPHIL 8 % (0-4); LYMPHOCYTE 10 % (20.0-51.0); NEUTROPHILS 76 % (42.0-75.2); NUCLEATED RED BLOOD CELL 1 (0-6)
[2021-05-18 06:52] LABS: HYPOCHROMIA 1+; PLATELET ESTIMATE NORMAL (NORMAL)
[2021-05-18 08:00] VITALS: BP 154/77; PULSE 93; TEMP 98.1
--- NOTE | 2021-05-18 10:29 | NUR ---
Computer Systems Software Engineer met with patient to review discharge plan. Patient is agreeable to [place] ([facility] and has no questions or concerns at this time.
[2021-05-18 11:44] VITALS: BP 133/55; PULSE 87; TEMP 97.3
[2021-05-18 15:30] VITALS: BP 149/72; PULSE 93; TEMP 98
--- NOTE | 2021-05-18 18:16 | NUR ---
PT HAS HAD NUMEROUS LOOSE STOOLS TODAY, VOMITTED X2, ONCE IN MORNING ET ONCE THIS AFTERNOON. PT IS GIVEN ZOFRAN IV FOR NAUSEA. PT STATES THAT SHE HAS OCCASIONAL INTERMITTENT ABDOMINAL PAIN. TPN INFUSING THROUGH PICC LINE. PT HAD EATEN CREAM OF WHEAT FOR LUNCH WITH NO PROBLEMS BUT HAD FELT NAUSEOUS AFTER EATING A PUDDING CUP @ DINNER.
[2021-05-18 19:45] VITALS: BP 146/65; PULSE 96; TEMP 98.5
--- NOTE | 2021-05-18 22:24 | NUR ---
ASSISTED TO BATHROOM, VOIDS AND HAS MUCUS EMESIS.
[2021-05-19] VITALS (7 sets, daily range): BP systolic 135–146; BP diastolic 57–75; PULSE 84–105; TEMP 97.8–98.8
--- NOTE | 2021-05-19 02:19 | NUR ---
PT HAS LARGE AMOUNT BROWN EMESIS. UP TO BATHROOM AND VOIDS WITHOUT PROBLEM.
--- NOTE | 2021-05-19 05:39 | NUR ---
PT SITTING IN BATHROOM, NAUSEA PRESENT, ONLY HAVING SALIVA COME UP. MEDICATED WITH ZOFRAN 4MG IVP AT THIS TIME.
[2021-05-19 06:51] LABS: MEAN CELL VOLUME 95 fl (80.0-100.0); MEAN CORPUSCULAR HGB CONC 32 g/dl (33.0-37.0); MEAN PLATELET VOLUME 9.5 fl (7.4-10.4); PLATELET COUNT 376 K/mm3 (130-400); RED BLOOD COUNT 3.04 M/mm3 (4.10-5.30); REDCELL DISTRIBUTION WIDTH-CV 14.5 % (11.5-14.5)
[2021-05-19 06:52] LABS: HEMATOCRIT 28.8 % (37.0-47.0); HEMOGLOBIN 9.1 g/dl (12.5-16.0); MEAN CORPUSCULAR HEMOGLOBIN 30 pg (27-31)
[2021-05-19 07:31] LABS: CALCIUM 9.1 mg/dL (8.4-10.2); CREATININE, serum 0.67 mg/dL (0.57-1.11); MAGNESIUM 2.2 mg/dL (1.6-2.6); PHOSPHOROUS 3.1 mg/dL (2.3-4.7); POTASSIUM 4.4 mmol/L (3.5-4.5)
[2021-05-19 09:36] LABS: ALBUMIN 2.2 gm/dL (3.4-4.8); BILIRUBIN,TOTAL 0.6 mg/dL (0.2-1.2); C-REACTIVE PROTEIN 10.94 mg/dL (0.00-0.50); TOTAL PROTEIN 5.9 gm/dL (6.2-8.1)
--- NOTE | 2021-05-19 10:20 | NUR ---
Orders recieved from Dr. Felix for Ng tube placement. Patient was willing to have tube placed, but was hesitent. I did have difficutly with insertion, Sonali injection molding supervisor called in for assist. Prior to Ng tube placement. Patient up to the bathroom & had a loose water tyson stool. Pericares given. New allyven foam to coccyx, stage 2 pressure ulcer noted. Air matress applied to bed. Will encourage activity and turning Q 2 hrs. Patient provided with new linens, bed bath. She brushed her teeth. Her abdomen remains distented. Bowels active. Picc Rue Tpn orders.
--- NOTE | 2021-05-19 12:45 | NUR ---
rounded. Plan of care reviewed. We discussed how Ng tube placement went. He assessed tube. I also made him aware of patients ecchymosis to patients left flank/hip. He was able to see. Patient aware she will be NPo, but did provided mouth swab, but unable to given her water per her request.
--- NOTE | 2021-05-19 16:45 | NUR ---
Patient up to the bathroom loose stool & voiding, did have some incontinence. Patient noticed to have Ng tube leaking. Adjustment made to Ng tube & canister. 200 mls of light tanish output noted. Patient provided with fresh linens. She had a bout of nausea when she was up, denies wanting any zofran. Vss on tele. Rue picc line with Tpn & ivf per orders.
--- NOTE | 2021-05-19 17:54 | NUR ---
Patient resting in bed. Ng tube noted to be leaking again, new tubing applied. Patient provided with new gown and assisted with hygiene. Ng tube ouput noted to be odourus. Otherwise patient denies needs at this time and thankful for cares given.
--- NOTE | 2021-05-19 19:09 | NUR ---
Patient daughter has arrived. Patient resting in bed. Bedside Report to Shailesh
--- NOTE | 2021-05-20 01:35 | NUR ---
Received report from day shift. Patient resting in bed. Assessment performed. Patient tolerating NG tube placement well. Patient given PM meds. Patient denies any n/v. Patient continues to have loose stools. Held Colace. Will continue to monitor.
[2021-05-20 03:43] VITALS: BP 135/53; PULSE 95; TEMP 98.4
--- NOTE | 2021-05-20 05:05 | NUR ---
Patient has had 3 large loose bowel movements. Replaced coccyx dressing twice. Patient's stage 2 ulcer on coccyx is covered. Patient repositioned in bed.
[2021-05-20 06:04] LABS: CALCIUM 7.9 mg/dL (8.4-10.2); CREATININE, serum 0.61 mg/dL (0.57-1.11)
[2021-05-20 06:19] LABS: MEAN CELL VOLUME 95 fl (80.0-100.0); MEAN CORPUSCULAR HGB CONC 32 g/dl (33.0-37.0); MEAN PLATELET VOLUME 9.2 fl (7.4-10.4); PLATELET COUNT 365 K/mm3 (130-400); RED BLOOD COUNT 2.64 M/mm3 (4.10-5.30); REDCELL DISTRIBUTION WIDTH-CV 14.5 % (11.5-14.5)
--- NOTE | 2021-05-20 06:19 | NUR ---
Notified of critical lab. Patient's Hgb decreased to 6.8 from 9.1. Lab advised to perform a re-draw. Attempted to call Sandi, phone is busy. Will continue to call.
[2021-05-20 06:22] LABS: HEMATOCRIT 25.1 % (37.0-47.0); MEAN CORPUSCULAR HEMOGLOBIN 30 pg (27-31)
--- NOTE | 2021-05-20 06:57 | NUR ---
Telephoned the hospitalist, Dr. Marmolejo. Francie instructed to order a unit of blood.
[2021-05-20 08:29] LABS: BAND 2 % (0-10); EOSINOPHIL 1 % (0-4); HYPOCHROMIA 1+; LYMPHOCYTE 8 % (20.0-51.0); NEUTROPHILS 86 % (42.0-75.2); PLATELET ESTIMATE NORMAL (NORMAL)
[2021-05-20 08:30] LABS: OVALOCYTES 1+
[2021-05-20 08:44] VITALS: BP 138/55; PULSE 76; TEMP 98.5
--- NOTE | 2021-05-20 09:04 | NUR ---
PT ASSESSED. NO COMPLAINTS OF PAIN OR NAUSEA. NO SIGNS OR SYMPTOMS OF DISTRESS. CALL LIGHT WITHIN REACH
--- NOTE | 2021-05-20 11:22 | NUR ---
Initial visit; Patient thanked Assistant Business Manager for looking in on her. She states she isn't sure how she is doing but welcomed Assistant Business Manager offering God's blessings and to keep her in Assistant Business Manager's prayers.
[2021-05-20 11:25] VITALS: BP 131/43; PULSE 87; TEMP 98
[2021-05-20 16:20] VITALS: BP 135/65; PULSE 77; TEMP 98.3
--- NOTE | 2021-05-20 18:30 | NUR ---
CALLED TO MICHAEL WITH REPORT THAT PT'S NG TUBE WAS OUT. PT WAS BEING ASSISTED TO THE COMMODE WHEN THE TUBE CAME OUT. TIP INTACT. DR. NOVAK NOTIFIED AND REQUESTS WE NOT PLACE A NEW ONE AT THIS TIME. CALL LIGHT WITHIN REACH. PT AND DAUGHTER UPDATED WITH POC
--- NOTE | 2021-05-20 19:40 | NUR ---
NOTIFIED MAEGAN FANG OF LOW UO LAST SHIFT. SEE NEW ORDERS.
--- NOTE | 2021-05-20 20:00 | NUR ---
PT RESTING IN BED. A&OX4. TELEMENTRY CONTINUES. TPN AT 42CC/HR/ LIPIDS AT 21CC/HR/ LR AT 60CC/HR TO RT PICC LINE. PT HAS SMALL AMT LOW ABD PAIN WITH MOVEMENT. REPOSIRTIONED.
[2021-05-20 20:32] VITALS: BP 136/56; PULSE 88; TEMP 98.7
[2021-05-20 23:05] VITALS: BP 136/65; PULSE 94; TEMP 99.3
[2021-05-21] VITALS (12 sets, daily range): BP systolic 91–162; BP diastolic 31–67; PULSE 73–113; TEMP 97.5–98.5
--- NOTE | 2021-05-21 01:13 | NUR ---
SENT 12HR SEDRICK TO LAB. ALBER BISHOP.
[2021-05-21 06:26] LABS: MEAN CELL VOLUME 96 fl (80.0-100.0); MEAN CORPUSCULAR HGB CONC 32 g/dl (33.0-37.0); MEAN PLATELET VOLUME 9.5 fl (7.4-10.4); PLATELET COUNT 320 K/mm3 (130-400); RED BLOOD COUNT 2.42 M/mm3 (4.10-5.30); REDCELL DISTRIBUTION WIDTH-CV 14.4 % (11.5-14.5)
[2021-05-21 06:31] LABS: HEMATOCRIT 23.2 % (37.0-47.0); HEMOGLOBIN 7.3 g/dl (12.5-16.0); MEAN CORPUSCULAR HEMOGLOBIN 30 pg (27-31)
[2021-05-21 06:40] LABS: CALCIUM 7.5 mg/dL (8.4-10.2); CREATININE, serum 0.59 mg/dL (0.57-1.11); POTASSIUM 3.8 mmol/L (3.5-4.5)
[2021-05-21 07:38] LABS: BAND 4 % (0-10); EOSINOPHIL 6 % (0-4); HYPOCHROMIA 2+; LYMPHOCYTE 7 % (20.0-51.0); MYELOCYTE 4 % (0-0); NEUTROPHILS 77 % (42.0-75.2); PLATELET ESTIMATE NORMAL (NORMAL); POIKILOCYTOSIS 2+
[2021-05-21 07:39] LABS: ANISOCYTOSIS 1+; MICROCYTOSIS 1+; OVALOCYTES 2+; POLYCHROMASIA 1+; SCHISTOCYTES 1+
--- NOTE | 2021-05-21 08:35 | NUR ---
Patient up to the bathroom this am. Another loose stool & voided. Pericares given. Barrier cream & cleanser used. Sore coccyx. Allyen foam dressing on. Patient sitting in the chair now. She remains NPO. Denies nausea this am. Abdomen remains slightly distended, but imporved. Robotic site edges well approximated. Brusing continues to low pelvis & into left hip & flank. Picc to RUE Tpn & LR per orders. Will monitor closely.
--- NOTE | 2021-05-21 10:59 | NUR ---
Patient daughter heading home & taking patients purse with her
--- NOTE | 2021-05-21 12:38 | NUR ---
Patient noted to have severe pain, she reports constant not like she has had before. Rating pain 9/10. Cramping in nature. Dr. Meraz called & made aware. Morphine given Prn. Only 1 mg per patient request, she was hesitent to take pain medication. Morphine has seemed to relieve her pain. Able to rest now. has been in to see and acess patient again, will monitor closely. Patient blood ready. Blood protocol followed. Verified with Sarai ORTEGA. Infusing at 60 ml/hr to Picc in [facility] in [place]. Reviewed with patient signs & symptoms of transfusion reaction. She report having mant transfusions in the past and toelrating without problems. Will remain at bedside & closely monitor patient.
--- NOTE | 2021-05-21 12:48 | NUR ---
rounded. He is aware of pain patient has had. Plan of care reviewed. No new orders at this time. He is aware of blood pressure. SHe continue to tolerate transfusion without complaints. Will continue to monitor closely.
--- NOTE | 2021-05-21 14:00 | NUR ---
Patient continues to tolerate blood transfusion without reaction. vitals stable. Patient has been able to rest very comfortably without any complaints of pain. Will monitor.
[2021-05-21 16:39] LABS: HEMATOCRIT 32.5 % (37.0-47.0); HEMOGLOBIN 10.5 g/dl (12.5-16.0)
--- NOTE | 2021-05-21 16:45 | NUR ---
given update on patient. Reported H&H level. Discussed with him her afternoon vitals & current vitals. Reviewed her current abdominal cramping, made him aware patient is hesitent to take morphine again. Did offered tylenol, patient did not feel she could take pills. Patient denies wanting clear liquids. Will monitor.
--- NOTE | 2021-05-21 18:10 | NUR ---
Patient continues to deny needs. Lopresser per order, BP stable.
--- NOTE | 2021-05-21 20:00 | NUR ---
PT RESTIN IN BED. NO NEED FOR PAIN MED. MILD LOW ABD CRAMPING.
[2021-05-22 00:12] VITALS: BP 122/44; PULSE 96; TEMP 98.5
[2021-05-22 03:15] VITALS: BP 110/54; PULSE 95; TEMP 98.1
[2021-05-22 06:43] LABS: CALCIUM 8.2 mg/dL (8.4-10.2); CREATININE, serum 0.7 mg/dL (0.57-1.11); MAGNESIUM 1.9 mg/dL (1.6-2.6); PHOSPHOROUS 3.2 mg/dL (2.3-4.7); POTASSIUM 4.3 mmol/L (3.5-4.5)
[2021-05-22 08:00] VITALS: BP 130/56; PULSE 85; TEMP 98.4
[2021-05-22 08:51] LABS: PATHOLOGY DIFF REVIEW OK
[2021-05-22 12:00] VITALS: BP 107/48; PULSE 75; TEMP 97.8
--- NOTE | 2021-05-22 14:11 | NUR ---
HAS SOME NASUEA WITH VOMITING CLEAR GREEN LIQUID. PT STATES SHE FEELS NAUSEATED AFTER HAVING STOMACH CRAMPS. PT WAS GIVEN ZOFRAN PER ORDERS.
[2021-05-22 15:30] VITALS: BP 146/36; PULSE 93; TEMP 97.7
--- NOTE | 2021-05-22 15:46 | NUR ---
Resource Coordinator faxed clinical updates to [facility].
[2021-05-22 19:48] VITALS: BP 137/52; PULSE 107; TEMP 98.5
--- NOTE | 2021-05-22 20:00 | NUR ---
Bedside shift report received, assumed care for vice president underwriting. Assessment complete. A&Ox3. Denies pain/nausea/shortness of breath. VS stable. Lap sites x4-edges well approximated/low transverse edges well approximated-no drainage noted. Abdomen is distended but +bowel sounds/+flatus. TELE reports afib/flutter. Purewick in place with adithya colored urine. PICC to right upper arm flushes well with good blood return. On RA. Noted to have bruising to left hip/pelvis. Plan of care discussed for this shift to include meds/pain control/calling for questions/concerns. Verbalizes understanding. Call light in reach. Will monitor.
[2021-05-23 00:01] VITALS: BP 134/44; PULSE 95; TEMP 98.4
[2021-05-23 03:46] VITALS: BP 130/48; PULSE 83; TEMP 98.8
--- NOTE | 2021-05-23 06:08 | NUR ---
Patient rested well this shift. Denied pain/shortness of breath. Had one episode of nausea-small amount of emesis but refused zofran. Tele reports A FIB/Flutter. +BM/+flatus. Denies current needs. Call light in reach. Will monitor.
--- NOTE | 2021-05-23 07:00 | NUR ---
PT RESTING IN BED. NO NEEDS AT THIS TIME. TPN AND LIPIDS RUNNING. WILL CONTINUE TO MONITOR.
[2021-05-23 07:42] VITALS: BP 121/48; PULSE 89; TEMP 98.1
[2021-05-23 09:41] LABS: MEAN CELL VOLUME 94 fl (80.0-100.0); MEAN CORPUSCULAR HGB CONC 33 g/dl (33.0-37.0); MEAN PLATELET VOLUME 9.4 fl (7.4-10.4); PLATELET COUNT 378 K/mm3 (130-400); RED BLOOD COUNT 3.19 M/mm3 (4.10-5.30); REDCELL DISTRIBUTION WIDTH-CV 14.5 % (11.5-14.5)
[2021-05-23 09:50] LABS: HEMOGLOBIN 9.8 g/dl (12.5-16.0); MEAN CORPUSCULAR HEMOGLOBIN 31 pg (27-31)
[2021-05-23 09:51] LABS: ALBUMIN 1.8 gm/dL (3.4-4.8); CALCIUM 8.4 mg/dL (8.4-10.2); CREATININE, serum 0.84 mg/dL (0.57-1.11); PHOSPHOROUS 4.2 mg/dL (2.3-4.7); POTASSIUM 4.3 mmol/L (3.5-4.5)
[2021-05-23 11:31] VITALS: BP 139/67; PULSE 102; TEMP 98.5
[2021-05-23 16:05] VITALS: BP 130/60; PULSE 90; TEMP 98.3
--- NOTE | 2021-05-23 16:09 | NUR ---
Web Mobile Designer faxed clinical updates to [facility].
[2021-05-23 19:55] VITALS: BP 134/64; PULSE 99; TEMP 98.1
--- NOTE | 2021-05-23 20:00 | NUR ---
Bedside shift report received, assumed care for night cleaner. Assessment complete. A&Ox3. Denies nausea/shortness of breath. Rating pain 3/10 intermittently-described as cramping-denies need for pain medication. Is currently NPO. VS stable. Tele reporting AFIB. PICC to right upper arm flushes well with good blood return. Abdomen noted to be more distended today-bowel sounds hypoactive. Lap sites x4/low transverse-edges well approximated-no s/s of infection noted. Purewick in place with adithya colored urine. Plan of care discussed for this shift to include meds/NPO for exam in AM/calling for questions/concerns. Verbalizes understanding/denies needs. Call light in reach. Will monitor.
[2021-05-24] VITALS (8 sets, daily range): BP systolic 125–149; BP diastolic 44–62; PULSE 60–108; TEMP 97.6–98.7
--- NOTE | 2021-05-24 02:00 | NUR ---
Called with c/o cramping to abdomen. Offered tylenol/oxycodone/morphine but patient states she doesnt want any medications. Does have K Pad on. States she will call if it gets worse. Will monitor.
--- NOTE | 2021-05-24 05:49 | NUR ---
Patient had an uneventful night. Noted to be very distended this AM. Has remained NPO. VS stable. PICC to right upper arm flushes well with good blood return. TPN infusing at 42mls/hr. Purewick in place with adithya colored urine. Lap sites x4/abdominal low transverse incision-edges well approximated/no drainage noted. Denies current questions/concerns. Call light in reach. Will monitor.
[2021-05-24 06:30] LABS: MEAN CELL VOLUME 92 fl (80.0-100.0); MEAN CORPUSCULAR HGB CONC 34 g/dl (33.0-37.0); MEAN PLATELET VOLUME 9.7 fl (7.4-10.4); PLATELET COUNT 435 K/mm3 (130-400); RED BLOOD COUNT 3.11 M/mm3 (4.10-5.30); REDCELL DISTRIBUTION WIDTH-CV 14.5 % (11.5-14.5)
--- NOTE | 2021-05-24 06:32 | NUR ---
0700 dose of synthroid not given at this time. Patient is NPO for an early AM procedure. Will pass on to day shift to administer when done.
[2021-05-24 06:55] LABS: HEMATOCRIT 28.6 % (37.0-47.0); HEMOGLOBIN 9.6 g/dl (12.5-16.0); MEAN CORPUSCULAR HEMOGLOBIN 31 pg (27-31)
[2021-05-24 07:11] LABS: ALBUMIN 1.7 gm/dL (3.4-4.8); BILIRUBIN,TOTAL 0.4 mg/dL (0.2-1.2); CALCIUM 8.4 mg/dL (8.4-10.2); CREATININE, serum 0.79 mg/dL (0.57-1.11); MAGNESIUM 2.2 mg/dL (1.6-2.6); PHOSPHOROUS 3.3 mg/dL (2.3-4.7); POTASSIUM 4.2 mmol/L (3.5-4.5); TOTAL PROTEIN 5.2 gm/dL (6.2-8.1)
[2021-05-24 07:23] LABS: BAND 9 % (0-10); EOSINOPHIL 1 % (0-4); LYMPHOCYTE 4 % (20.0-51.0); NEUTROPHILS 82 % (42.0-75.2); OVALOCYTES 1+
[2021-05-24 07:24] LABS: PLATELET ESTIMATE NORMAL (NORMAL)
[2021-05-24 10:01] LABS: CLOSTRIDIUM DIFF A/B NEG; CLOSTRIDIUM DIFF A/B INTERP No C.diff present
--- NOTE | 2021-05-24 11:54 | NUR ---
PT IS DIFFICULT TO INSERT PERIPHERAL IV. IV IN LEFT FA HAS INFILTRATED. PT HAS PAIN ET SKIN IS EDEMATOUS. PT'S RIGHT ARM IS RESTRICTED R/T HX OF LYMPH NODE REMOVAL ET LEFT ARM IS BRUISED. MAG SULFATE IS TO BE GIVEN IV. ELIGIO LEAVITT NOTIFIED, WILL ATTEMPT TO INSERT IV WITH VEIN FINDER.
--- NOTE | 2021-05-24 13:43 | NUR ---
Operative Supervisor contacted Keyla at [facility] who advised they still plan to accept patient once she is no longer on TPN. Patient remains on TPN at this time. Discharge Plan: [facility]
--- NOTE | 2021-05-24 15:29 | NUR ---
RADIOLOGY IS HERE TO TAKE PT DOWNSTAIRS. TPN PLACED ON STANDBY ET PURWICK REMOVED. PT TRANSFERS TO WHEELCHAIR. PT'S SON REMAINS IN ROOM.
--- NOTE | 2021-05-25 00:54 | NUR ---
Received report from day shift. Patient resting in bed. Alert and oriented x3. VSS. Lungs CTA. Bowel sounds hypoactive and sounding pingy. Patient denies any pain at this time. Assessment performed. PM meds given.
[2021-05-25 04:09] VITALS: BP 142/39; PULSE 103; TEMP 98
--- NOTE | 2021-05-25 05:52 | NUR ---
Patient had an uneventful night. Patient denied any pain or nausea/vomiting. Changed purewick and emptied canister with 125ml of urine. Patient given po meds.
[2021-05-25 07:53] LABS: HEMATOCRIT 30.2 % (37.0-47.0); HEMOGLOBIN 9.5 g/dl (12.5-16.0); MEAN CELL VOLUME 97 fl (80.0-100.0); MEAN CORPUSCULAR HEMOGLOBIN 30 pg (27-31); MEAN CORPUSCULAR HGB CONC 32 g/dl (33.0-37.0); MEAN PLATELET VOLUME 9.4 fl (7.4-10.4); PLATELET COUNT 513 K/mm3 (130-400); RED BLOOD COUNT 3.12 M/mm3 (4.10-5.30); REDCELL DISTRIBUTION WIDTH-CV 14.6 % (11.5-14.5)
[2021-05-25 07:54] VITALS: BP 142/51; PULSE 90; TEMP 98.5
[2021-05-25 08:00] LABS: ALBUMIN 1.8 gm/dL (3.4-4.8); BILIRUBIN,TOTAL 0.5 mg/dL (0.2-1.2); CALCIUM 8.9 mg/dL (8.4-10.2); CREATININE, serum 0.73 mg/dL (0.57-1.11); POTASSIUM 4.7 mmol/L (3.5-4.5); TOTAL PROTEIN 5.5 gm/dL (6.2-8.1)
[2021-05-25 08:37] LABS: BAND 2 % (0-10); BASOPHIL 1 % (0-2); LYMPHOCYTE 5 % (20.0-51.0); MYELOCYTE 1 % (0-0); NEUTROPHILS 86 % (42.0-75.2); PLATELET ESTIMATE INCREASED (NORMAL)
[2021-05-25 08:38] LABS: POLYCHROMASIA 1+
--- NOTE | 2021-05-25 10:21 | NUR ---
Primary RN receives order for NG tube placement. Patient with history of being difficult placement for NG tube. 12FR NG tube was placed into left nare with minimal difficulty, by this nurse. Pt with return of light green fluid, suction on low intermittent suction. Radiology called for placement xray. Patient abdomen distended at time of NG placement, patient nauseated. Call light within reach.
--- NOTE | 2021-05-25 10:40 | NUR ---
PT ASSESSED. NO COMPLAINTS OF PAIN OR DYSPNEA. COMPLAINS OF NAUSEA AND IS MEDICATED PER MAY. NG TUBE PLACE BY NURSING SUPERVISORS AND SET TO LOW INTERMITTENT SUCTION. NO OTHER CONCERNS AT THIS TIME. CALL LIGHT WITHIN REACH
--- NOTE | 2021-05-25 11:29 | NUR ---
Patient to have NG tube placed today.
[2021-05-25 11:59] VITALS: BP 151/63; PULSE 98; TEMP 97.6
[2021-05-25 15:50] VITALS: BP 142/55; PULSE 91; TEMP 98.3
[2021-05-25 19:30] VITALS: BP 138/51; PULSE 80; TEMP 97.6
[2021-05-25 23:46] VITALS: BP 131/45; PULSE 75; TEMP 99.1
--- NOTE | 2021-05-26 00:11 | NUR ---
Received report from day shift. Patient resting in bed. Alert and oriented x3. VSS. Lungs CTA. Bowel sounds hypoactive. NG tube set to intermittent suction. Patient denies any pain. Assessment performed, pm meds given, and patient in bed with call light near.
[2021-05-26 03:34] VITALS: BP 116/44; PULSE 79; TEMP 97.9
[2021-05-26 06:58] LABS: MEAN CELL VOLUME 98 fl (80.0-100.0); MEAN CORPUSCULAR HGB CONC 31 g/dl (33.0-37.0); MEAN PLATELET VOLUME 9.5 fl (7.4-10.4); PLATELET COUNT 414 K/mm3 (130-400); RED BLOOD COUNT 2.94 M/mm3 (4.10-5.30); REDCELL DISTRIBUTION WIDTH-CV 14.8 % (11.5-14.5)
[2021-05-26 07:07] LABS: HEMATOCRIT 28.9 % (37.0-47.0); HEMOGLOBIN 8.9 g/dl (12.5-16.0); MEAN CORPUSCULAR HEMOGLOBIN 30 pg (27-31)
[2021-05-26 07:11] LABS: CALCIUM 8.3 mg/dL (8.4-10.2); CREATININE, serum 0.74 mg/dL (0.57-1.11); MAGNESIUM 2.4 mg/dL (1.6-2.6); PHOSPHOROUS 2.5 mg/dL (2.3-4.7)
[2021-05-26 07:26] VITALS: BP 124/50; PULSE 76; TEMP 98.3
[2021-05-26 07:59] LABS: BAND 4 % (0-10); EOSINOPHIL 1 % (0-4); LYMPHOCYTE 9 % (20.0-51.0); MICROCYTOSIS 1+; MYELOCYTE 1 % (0-0); NEUTROPHILS 85 % (42.0-75.2); OVALOCYTES 1+
[2021-05-26 08:00] LABS: PLATELET ESTIMATE INCREASED (NORMAL)
--- NOTE | 2021-05-26 10:20 | NUR ---
PT ASSESSED. NO COMPLAINTS OF PAIN OR DYSPNEA. PT REPORTS FEELING A LITTLE BETTER TODAY. SUCTIONS EXCHANGED FOR NEW SUPPLIES. NO OTHER CONCERNS AT THIS TIME. CALL LIGHT WITHIN REACH
[2021-05-26 11:17] VITALS: BP 129/47; PULSE 84; TEMP 97.8
--- NOTE | 2021-05-26 14:52 | NUR ---
RAMONA faxed updates to [facility].
[2021-05-26 15:12] VITALS: BP 139/51; PULSE 72; TEMP 97.7
[2021-05-26 20:32] VITALS: BP 138/48; PULSE 80; TEMP 98
[2021-05-27] VITALS (7 sets, daily range): BP systolic 122–143; BP diastolic 43–52; PULSE 69–105; TEMP 97.3–98.6
--- NOTE | 2021-05-27 03:22 | NUR ---
Received report from day shift. Patient alert and oriented. VSS. Assessment performed. Patient denies any pain at this time. NG tube to LIS. PM meds given. Patient resting in bed with call light near.
[2021-05-27 06:42] LABS: BASO % 0.1 % (0.0-2.0); EOS % 0.1 % (0.0-4.0); GRAN # 13.1 K/mm3 (1.4-6.5); GRAN % 87.4 % (42.2-75.2); LYMPH % 6.3 % (20.0-51.0); MEAN CELL VOLUME 99 fl (80.0-100.0); MEAN CORPUSCULAR HGB CONC 31 g/dl (33.0-37.0); MEAN PLATELET VOLUME 9.8 fl (7.4-10.4); MONO # 0.7 K/mm3 (0.1-0.6); MONO % 4.8 % (1.7-9.3); PLATELET COUNT 416 K/mm3 (130-400); RED BLOOD COUNT 2.68 M/mm3 (4.10-5.30); REDCELL DISTRIBUTION WIDTH-CV 15.1 % (11.5-14.5)
[2021-05-27 06:44] LABS: HEMATOCRIT 26.6 % (37.0-47.0); HEMOGLOBIN 8.1 g/dl (12.5-16.0); MEAN CORPUSCULAR HEMOGLOBIN 30 pg (27-31)
[2021-05-27 06:55] LABS: CALCIUM 8.3 mg/dL (8.4-10.2); CREATININE, serum 0.7 mg/dL (0.57-1.11); MAGNESIUM 2.2 mg/dL (1.6-2.6); POTASSIUM 4.4 mmol/L (3.5-4.5)
--- NOTE | 2021-05-27 10:00 | NUR ---
PT ASSESSED. NO COMPLAINTS OF PAIN OR DYSPNEA OR NAUSEA. NO SIGNS OR SYMPTOMS OF DISTRESS. CALL LIGHT WITHIN REACH. NG TUBE CLAMPED. PT ASKED TO NOTIFY STAFF IF NAUSEA OCCURS
--- NOTE | 2021-05-28 03:20 | NUR ---
Patient care, medication administration and nursing documentation occurred during a Daylight Savings Time Change.
--- NOTE | 2021-05-28 04:25 | NUR ---
2 ML OF CATHFLO INSERTED INTO PURPLE PORT PER PROTOCOL
[2021-05-28 04:50] VITALS: BP 132/43; PULSE 78; TEMP 98.2
[2021-05-28 06:18] LABS: MEAN CELL VOLUME 96 fl (80.0-100.0); MEAN CORPUSCULAR HGB CONC 32 g/dl (33.0-37.0); MEAN PLATELET VOLUME 9.5 fl (7.4-10.4); PLATELET COUNT 417 K/mm3 (130-400); RED BLOOD COUNT 2.61 M/mm3 (4.10-5.30); REDCELL DISTRIBUTION WIDTH-CV 14.8 % (11.5-14.5)
[2021-05-28 06:24] LABS: MEAN CORPUSCULAR HEMOGLOBIN 31 pg (27-31)
[2021-05-28 06:43] LABS: CALCIUM 8.4 mg/dL (8.4-10.2); CREATININE, serum 0.64 mg/dL (0.57-1.11); POTASSIUM 3.7 mmol/L (3.5-4.5)
--- NOTE | 2021-05-28 07:08 | NUR ---
ASSESSMENT COMPLETED. PT'S BOWEL SOUNDS ARE ACTIVE, PT DENIES PAIN OR NAUSEA @ THIS TIME. PT IS POSITIONED ONTO BED PAINTING, PASSES GAS. PT'S LEFT FLANK ET LOWER BACK ARE DARK PURPLE IN COLOR. PT'S PELVIC AREA IS ALSO BRUISED ET ENTIRE LABIA AREA IS DARK PURPLE. RESPIRATIONS UNLABORED. CALL LIGHT WITHIN REACH.
[2021-05-28 07:09] VITALS: BP 141/60; PULSE 70; TEMP 97.9
[2021-05-28 08:41] LABS: BAND 3 % (0-10); HYPOCHROMIA 1+; LYMPHOCYTE 6 % (20.0-51.0); NEUTROPHILS 89 % (42.0-75.2); PLATELET ESTIMATE INCREASED (NORMAL)
--- NOTE | 2021-05-28 09:13 | NUR ---
NG TUBE CONTINUES TO BE CLAMPED ET PT DENIES NAUSEA. PT TOOK PILLS WITHOUT PROBLEMS BUT HAS NOT YET HAD CLEAR LIQUIDS TRAY FOR BREAKFAST.
--- NOTE | 2021-05-28 11:14 | NUR ---
PT IS VERY DROWSY, AWAKENS EASILY ET IS ORIENTED WHEN AWAKE. PT DENIES PAIN OR NAUSEA. NG TUBE CLAMPED. IVF ET TPN INFUSING INTO PICC. CALL LIGHT WITHIN REACH.
[2021-05-28 11:17] VITALS: BP 124/53; PULSE 70; TEMP 97.5
[2021-05-28 15:56] VITALS: BP 129/49; PULSE 77; TEMP 98.2
--- NOTE | 2021-05-28 18:01 | NUR ---
PT HAS BEEN ASSISTED ONTO BSC WITH SBA. TPN ET IVF INFUSING INTO PICC. NG TUBE IN PLACE ET CLAMPED. PT HAS BEEN ENCOURAGED TO GET OUT OF BED MORE FREQUENTLY, HAS BEEN REQUESTING TO USE BEDPAN R/T URGENCY OF LOOSE STOOLS. PT VERBALIZES UNDERSTANDING OF STAYING ACTIVE.
[2021-05-28 19:55] VITALS: BP 139/55; PULSE 98; TEMP 97.1
[2021-05-28 23:19] VITALS: BP 137/60; PULSE 82; TEMP 98
[2021-05-29 03:37] VITALS: BP 139/53; PULSE 70; TEMP 98
[2021-05-29 05:40] LABS: CREATININE, serum 0.56 mg/dL (0.57-1.11); MAGNESIUM 1.9 mg/dL (1.6-2.6); PHOSPHOROUS 2.8 mg/dL (2.3-4.7); POTASSIUM 4.1 mmol/L (3.5-4.5)
--- NOTE | 2021-05-29 06:31 | NUR ---
PATIENT RESTED QUIETLY IN BED THROUGHOUT THE NIGHT. NO NEW ISSUES NOTED OR REPORTED.
--- NOTE | 2021-05-29 06:45 | NUR ---
DR. RAMOS NOTIFIED OF CONSULT AT THIS TIME.
[2021-05-29 07:28] VITALS: BP 131/59; PULSE 71; TEMP 98
--- NOTE | 2021-05-29 11:28 | NUR ---
Pt assessment complete. Pt sitting up in chair after working with PT. She denies any pain at this time. Reports some cramping to abdomen, denies any N/V. NG still in place but clamped. Tolerating clear liquids without issues. Call light within reach.
[2021-05-29 11:41] VITALS: BP 134/63; PULSE 97; TEMP 97.7
--- NOTE | 2021-05-29 13:40 | NUR ---
The patient remains on TPN. RAMONA notified and faxed updates to Keyla at [facility]. Keyla confirms that they can still accept the patient once she is off TPN.
[2021-05-29 16:00] VITALS: BP 130/49; PULSE 70; TEMP 97.9
--- NOTE | 2021-05-29 18:44 | NUR ---
Pt tolerated clears without complications today. Active bowels, and two loose BM's. No N/V. Up to the chair and walked in the halls a couple of times. No needs at this time. Call light within reach.
[2021-05-29 20:57] VITALS: BP 146/44; PULSE 71; TEMP 97.5
[2021-05-30 00:17] VITALS: BP 155/54; PULSE 77; TEMP 98.5
--- NOTE | 2021-05-30 01:21 | NUR ---
PATIENT DOING WELL TONIGHT. NG TUBE REMAINS CLAMPED. PATIENT HAD SEVERAL SMALL LOOSE BMS. TPN INFUSING. PICC ODESSA PATENT AND FLUSHED. HS MEDICATIONS TOLERATED. DENIES PAIN. LARGE PURPLE BRUISING NOTED TO BACK/SIDE.
[2021-05-30 04:00] VITALS: BP 130/62; PULSE 70; TEMP 98.3
--- NOTE | 2021-05-30 07:20 | NUR ---
Shift report received from rn shift mgr RN. Patient resting supine in bed. HOB elevated approx 30 degrees. Call light is within her reach
[2021-05-30 07:33] VITALS: BP 131/66; TEMP 98.3
--- NOTE | 2021-05-30 08:57 | NUR ---
Patient is resting in bed. Arouses easily from sleep. She denies any pain, nausea, or abd. pain. NG tube remains clamped. She continues on TPN infusing to Rt. upper arm PICC line. She denies further needs at this time. Call light is within her reach
--- NOTE | 2021-05-30 09:45 | NUR ---
Nurse in to room to do blood draw from Rt. arm PICC site. Purple port flushed x 2 with 20mL NS. Port flushes well but unable to get blood return. Blue port also flushed with 20mL NS x 2 and flushing well, but unable to get blood return. Brittany PICC RN, notified. Per Brittany, obtain physician order for Cath Flow. Lab notified that RN is unable to draw blood from PICC Line. Will recheck PICC sites. 1mL blood return noted from purple port.
[2021-05-30 10:10] LABS: MEAN CELL VOLUME 95 fl (80.0-100.0); MEAN CORPUSCULAR HGB CONC 32 g/dl (33.0-37.0); MEAN PLATELET VOLUME 9.4 fl (7.4-10.4); PLATELET COUNT 433 K/mm3 (130-400); RED BLOOD COUNT 2.89 M/mm3 (4.10-5.30); REDCELL DISTRIBUTION WIDTH-CV 14.7 % (11.5-14.5)
[2021-05-30 10:20] LABS: HEMATOCRIT 27.4 % (37.0-47.0); HEMOGLOBIN 8.7 g/dl (12.5-16.0); MEAN CORPUSCULAR HEMOGLOBIN 30 pg (27-31)
[2021-05-30 10:21] LABS: CALCIUM 8.4 mg/dL (8.4-10.2); CREATININE, serum 0.68 mg/dL (0.57-1.11); MAGNESIUM 1.9 mg/dL (1.6-2.6); POTASSIUM 3.7 mmol/L (3.5-4.5)
[2021-05-30 10:47] LABS: BAND 2 % (0-10); LYMPHOCYTE 10 % (20.0-51.0); MYELOCYTE 2 % (0-0); NEUTROPHILS 84 % (42.0-75.2)
[2021-05-30 10:49] LABS: OVALOCYTES 1+; PLATELET ESTIMATE INCREASED (NORMAL)
--- NOTE | 2021-05-30 11:31 | NUR ---
Patient is out of bed; ambulating with PT in hallway.
[2021-05-30 11:38] VITALS: BP 140/56; PULSE 70; TEMP 97.5
--- NOTE | 2021-05-30 13:24 | NUR ---
Brittany, PICC RN, here to assess PICC line. PICC continues to flush well. She was able to withdraw approx 5mL blood during flush
--- NOTE | 2021-05-30 15:07 | NUR ---
Pt. resting in bed. Arouses easily from sleep. She denies any abd. pain or nausea. Denies any general pain or discomfort. NG tube remains clamped. Call light is within her reach. Pt. denies further needs at this time
[2021-05-30 15:23] VITALS: BP 121/55; PULSE 80; TEMP 97.6
--- NOTE | 2021-05-30 17:17 | NUR ---
Pt. resting in bed. Assisted to the bathroom. Pt. denies any pain or discomfort. She denies abd. pain or nausea.
[2021-05-30 20:41] VITALS: BP 117/50; PULSE 77; TEMP 98.2
[2021-05-31 00:14] VITALS: BP 120/50; PULSE 72; TEMP 97.7
--- NOTE | 2021-05-31 03:50 | NUR ---
Report received from day shift nurse. Full body assessment completed and vital signs are WNL. Patient is pleasant and A&OX4. She is still on TPN but tolerating oral fluids and food. She denies any N/V but this nurse observed that her stools are loose. Patient currently has a NG tube in her right nostril that is clamped off. PICC line is still in place in her right upper arm. Abdominal incisions are CD&I. Patient denies any pain however she complains of feeling "bloated" intermittently. Patient is passing flatus and has bowel sounds. Patient has no other complaints at this time. Call light within reach.
[2021-05-31 03:56] VITALS: BP 132/58; PULSE 71; TEMP 97.7
[2021-05-31 06:34] LABS: ALBUMIN 1.9 gm/dL (3.4-4.8); BILIRUBIN,TOTAL 0.4 mg/dL (0.2-1.2); CALCIUM 8.4 mg/dL (8.4-10.2); CREATININE, serum 0.66 mg/dL (0.57-1.11); POTASSIUM 3.8 mmol/L (3.5-4.5); TOTAL PROTEIN 5.1 gm/dL (6.2-8.1)
--- NOTE | 2021-05-31 06:46 | NUR ---
Shift report received from shift boss RN. Patient resting in bed. Call light is within her reach
[2021-05-31 07:17] VITALS: BP 120/57; PULSE 70; TEMP 97.6
--- NOTE | 2021-05-31 07:40 | NUR ---
Pt. is resting in bed; arouses easily from sleep. She denies general pain, abd. pain, or nausea. Abd. remains rounded but soft. BS present x 4 quads. TPN continues to infuse to PICC line Rt. upper arm, purple port. Red port flushes without difficulty but unable to obtain to blood return. PICC site is normal w/out signs of redness or swelling. Pt. denies any needs at this time. Call light is within her reach
[2021-05-31 11:21] VITALS: BP 127/51; PULSE 73; TEMP 97.4
[2021-05-31] MEDS ORDERED: PREDNISONE20 MG PO (11:48)
--- NOTE | 2021-05-31 14:52 | NUR ---
RAMONA staffed with the clinical team. The patient's TPN may be stopped tomorrow and her NG tube removed. The patient may be able to discharge in a couple of days, if tolerating food well. RAMONA attempted to notify Keyla at [facility]. RAMONA left her a voicemail and faxed over updates. RAMONA then contacted and updated the patient's daughter, Idalmis. Idalmis verbalized understanding. She states that since she works at the [employer] [employer], she does know that doctors have been willing to accept patient's on the weekend, if the patient is not able to discharge on Saturday. RAMONA will need to verify this with Keyla. She states that she will be headed back to [place] after work today and will be here through Saturday. She plans on transporting the patient to [facility].
[2021-05-31 15:29] VITALS: BP 132/50; PULSE 70; TEMP 98.4
--- NOTE | 2021-05-31 16:12 | NUR ---
Pt resting in bed. She denies pain. She denies nausea. She reports feeling bloated. Pt. has continued to have loose (brown) stools today. NGT remains clamped. Pt. denies further needs at this time. Her call light is within her reach
[2021-05-31 20:11] VITALS: BP 146/57; PULSE 83; TEMP 97.5
--- NOTE | 2021-05-31 23:28 | NUR ---
Report received from SHANNON Healy. Patient is A&Ox4 and pleasant. Patient is tolerating oral medications and fluids well, patient states that she has been able to keep down her midday meal. Denies N/V. Full body assessment completed and vital signs are WNL. Patient denies having any pain but does complain of bloating in her abdomen. Patient is passing gas and loose stools. NG tube to left nostril is still in place but clamped. Patient has no other complaints at this time. Anticipated discharge is this weekend if patient remains stable. Call light within reach.
[2021-06-01 00:13] VITALS: BP 132/50; PULSE 71; TEMP 98.1
[2021-06-01 04:00] VITALS: BP 127/63; PULSE 76; TEMP 97.3
[2021-06-01 06:07] LABS: MEAN CELL VOLUME 94 fl (80.0-100.0); MEAN CORPUSCULAR HGB CONC 32 g/dl (33.0-37.0); MEAN PLATELET VOLUME 9.7 fl (7.4-10.4); PLATELET COUNT 420 K/mm3 (130-400); RED BLOOD COUNT 2.78 M/mm3 (4.10-5.30); REDCELL DISTRIBUTION WIDTH-CV 14.9 % (11.5-14.5)
[2021-06-01 06:08] LABS: HEMATOCRIT 26.2 % (37.0-47.0); HEMOGLOBIN 8.5 g/dl (12.5-16.0); MEAN CORPUSCULAR HEMOGLOBIN 31 pg (27-31)
[2021-06-01 06:19] LABS: CALCIUM 8.3 mg/dL (8.4-10.2); CREATININE, serum 0.66 mg/dL (0.57-1.11); POTASSIUM 3.7 mmol/L (3.5-4.5)
[2021-06-01 06:47] LABS: BAND 6 % (0-10); LYMPHOCYTE 13 % (20.0-51.0); METAMYELOCYTE 1 % (0-0); NEUTROPHILS 79 % (42.0-75.2); PLATELET ESTIMATE NORMAL (NORMAL)
[2021-06-01 07:43] VITALS: BP 125/62; PULSE 78; TEMP 98.4
--- NOTE | 2021-06-01 11:58 | NUR ---
The patient's attending is advancing the patient to a soft diet today. He notes that she is nearing discharge. RAMONA attempted to notify Keyla at [facility]. RAMONA left her a voicemail. SW to fax updates to [facility].
--- NOTE | 2021-06-01 12:05 | NUR ---
PICC assessment performed. Found purple lumen with no cap present. Alcohol swab and hub with x2.New cath applied. Lumen flushed with 10 mL normal saline with good blood return noted. Other lumen flushed with 20 mL normal saline with good blood return noted. Patient reports that nursing staff is unable to obtain lab samples. Therefore, I suggested Cathflo administration.Primary care nurse informed. Cutting Tool Sharpener of surgical unit informed. IGGY Reynoso informed.
[2021-06-01 12:30] VITALS: BP 106/67; PULSE 71; TEMP 98
--- NOTE | 2021-06-01 12:42 | NUR ---
bending shed worker faxed clinical updates to [facility].
[2021-06-01 16:02] VITALS: BP 129/55; PULSE 82; TEMP 97.4
--- NOTE | 2021-06-01 17:57 | NUR ---
PATIENT STABLE THIS SHIFT. NO COMPLAINTS. DIET ADVANCED TO [facility] SOFT, IF PATIENT CAN TOLERATE WILL DC NG TUBE AND DC PATIENT HOME. C/O ABD PAIN AND BLOATING THIS MORNING, HAS GOTTEN BETTER. TAKES MEDS WHOLE WITH THIN LIQUIDS. CONTINENT OF B/B. A&O X4.
[2021-06-01 20:00] VITALS: BP 112/45; PULSE 80; TEMP 98.3
--- NOTE | 2021-06-01 20:00 | NUR ---
Bedside shift report received, assumed care for night custodian. Assessment complete. A&Ox3. Denies pain/nausea/shortness of breath. VS stable. 12FR NG tube clamped. Tolerated mech soft diet. Bowel sounds noted to be hypoactive but +BM/+flatus. PICC to right upper arm flushes without difficulty. SCDs bilat. Plan of care discussed for this shift to include meds/calling for quesitons/concerns. Verbalizes understanding/denies needs. Call light in reach. Will monitor.
--- NOTE | 2021-06-02 00:30 | NUR ---
Resting eyes closed. No s/s of pain noted. Will monitor.
[2021-06-02 00:35] VITALS: BP 108/54; PULSE 74; TEMP 98.3
[2021-06-02 04:43] VITALS: BP 114/54; PULSE 73; TEMP 98.2
--- NOTE | 2021-06-02 05:14 | NUR ---
Patient had an uneventful night. Denied pain/nausea/shortness of breath. Tolerated mech soft diet. NG still clamped. PICC to right upper arm flushed well with good blood return. Anticipated DC today. Denies current needs. Call light in reach. Will monitor.
[2021-06-02 07:41] VITALS: BP 129/54; PULSE 71; TEMP 98
[2021-06-02 09:40] LABS: MEAN CELL VOLUME 94 fl (80.0-100.0); MEAN CORPUSCULAR HGB CONC 32 g/dl (33.0-37.0); MEAN PLATELET VOLUME 9.5 fl (7.4-10.4); PLATELET COUNT 418 K/mm3 (130-400); RED BLOOD COUNT 3.03 M/mm3 (4.10-5.30); REDCELL DISTRIBUTION WIDTH-CV 15.6 % (11.5-14.5)
[2021-06-02 09:55] LABS: CALCIUM 8.3 mg/dL (8.4-10.2); CREATININE, serum 0.71 mg/dL (0.57-1.11); POTASSIUM 3.7 mmol/L (3.5-4.5)
[2021-06-02 09:57] LABS: HEMATOCRIT 28.5 % (37.0-47.0); HEMOGLOBIN 9.2 g/dl (12.5-16.0); MEAN CORPUSCULAR HEMOGLOBIN 30 pg (27-31)
[2021-06-02 10:01] LABS: BAND 6 % (0-10); LYMPHOCYTE 10 % (20.0-51.0); NEUTROPHILS 82 % (42.0-75.2); PLATELET ESTIMATE NORMAL (NORMAL)
--- NOTE | 2021-06-02 10:33 | NUR ---
Pt. resting in bed. Arouses easily from sleeping. Pt. was up to ambulate with PT this morning. Abd. remains distended with + bowel sounds all quandrants. She denies abd. pain or nausea. NG tube was removed around 0920 this morning without trauma or difficulty. Pt. is anticipating d/c to home today. She denies further needs at this time. Call light is within her reach
--- NOTE | 2021-06-02 11:02 | NUR ---
The patient's attending is ready to discharge the patient today. RAMONA notified and faxed updates to Keyla at [facility]. Keyla reports that Dr. Samuel Carson has accepted the patient today and his number for the doc-to-doc is [phone]. RAMONA [address] Felix and updated him on the above and provided him with the doc-to-doc phone number. RAMONA informed him how they will require the phone call first, before they take the patient. RAMONA met with the patient and her daughter, Idalmis, and updated them on the above. The patient and Idalmis are in agreement to the discharge. RAMONA presented and read the IM form outloud to Idalmis. Idalmis verbalized understanding and signed the form. RAMONA provided her with a copy. The patient is to discharge today, 06/02, to [facility]. Transportation is to be by private vehicle, via the patient's daughter. No additional needs at this time.
[2021-06-02] MEDS ORDERED: PREDNISONE10 MG PO (11:46)
[2021-06-02 11:51] VITALS: BP 139/60; PULSE 75; TEMP 97.7
[2021-06-02 12:20] VITALS: BP 139/60; PULSE 75; TEMP 97.7
--- NOTE | 2021-06-02 13:00 | NUR ---
REPORT CALLED TO [facility]. ALL QUESTIONS ANSWERED. PATIENT WHEELED OUT WITH ALL BELONGINGS & PAPERWORK. HER DAUGHTER DRIVING HER TO [place] (5 HOURS AWAY) PATIENT PROVIDED WITH WARM BLANKET FOR THE RIDE. PATIETN DAUGHTER HELPED HER DRESSED PRIOR TO DC AND HOSPITALIST ROUNDED & SPOKE TO ON THE PHONE PRIOR TO DC.
== END 2021-06-02 13:33 | disposition swing bed (61) | DRG 329 ==
LOC: INPTSU 05-10 07:49 → SURG 05-10 07:49
PROVIDERS: Internal Medicine; Physician Assistant; Surgery; ADMIT Surgery
PROC: 8E0W3CZ Robotic Assisted Procedure of Trunk Region, Percutaneous Approach (ICD-10-PCS; 2021-05-10)
PROC: 0D1B4ZL Bypass Ileum to Transverse Colon, Percutaneous Endoscopic Approach (ICD-10-PCS; principal; 2021-05-10 10:45)
PROC: 02HV33Z Insertion of Infusion Device into Superior Vena Cava, Percutaneous Approach (ICD-10-PCS; 2021-05-15)
DX: K91.89 Other postprocedural complications and disorders of digestive system (principal); E43 Unspecified severe protein-calorie malnutrition; K56.699 Other intestinal obstruction unspecified as to partial versus complete obstruction; K50.90 Crohn's disease, unspecified, without complications; N17.9 Acute kidney failure, unspecified; K56.7 Ileus, unspecified; I48.91 Unspecified atrial fibrillation; E78.00 Pure hypercholesterolemia, unspecified; D64.9 Anemia, unspecified; I95.9 Hypotension, unspecified; D72.829 Elevated white blood cell count, unspecified; I10 Essential (primary) hypertension; I08.3 Combined rheumatic disorders of mitral, aortic and tricuspid valves; E03.9 Hypothyroidism, unspecified; K59.81 Ogilvie syndrome; R11.2 Nausea with vomiting, unspecified; F41.9 Anxiety disorder, unspecified; F32.A Depression, unspecified; Z95.0 Presence of cardiac pacemaker; Z96.659 Presence of unspecified artificial knee joint; Z86.73 Personal history of transient ischemic attack (TIA), and cerebral infarction without residual deficits
CPT/HCPCS: 99223; 99231-AI; 99232-AI; 99233-AI; A4314; A9284; C1751; C9113; J0330; J0610; J0690; J1100; J1160; J1170; J1650; J1815; J2270; J2405; J2704; J2920; J2997; J3010; J3411; J3475; J7030; J7040; J7050; J7070; J7120; J7131; J7512; P9016